=== PATIENT | male | born 1975 | race Caucasian/White ===

== ENCOUNTER 2018-05-03 17:56 | Inpatient (IN) | payer SELFPAY ==
[~2018-05-03] VITALS: Ht 170.2 cm; Wt 140.9 kg
[2018-05-03 18:25] LABS: APPEARANCE CLEAR ((CLEAR)); BILIRUBIN NEGATIVE; BLOOD NEGATIVE; COLOR YELLOW ((YELLOW)); GLUCOSE (STRIP) >=500; KETONES 80; LEUKOCYTES NEGATIVE; NITRITE NEGATIVE; PROTEIN (STRIP) 100; SPECIFIC GRAVITY 1.038 (1.000-1.030)
[2018-05-03 18:49] LABS: BACTERIA NONE SEEN /HPF; EPITHELIAL CELLS RARE /HPF; MUCUS 1+ /LPF; UCUL ADDED? NO; WHITE BLOOD CELLS 0-5 /HPF (0-5)
[2018-05-03 18:51] LABS: ALBUMIN 4.3 g/dL (3.2-4.8); CHLORIDE 97 mEq/L (99-109); SODIUM 127 mEq/L (136-147)
[2018-05-03 18:53] LABS: GLUCOSE 279 mg/dL (70-99)
[2018-05-03 18:54] LABS: TOTAL PROTEIN 11.2 g/dL (6.4-8.3)
[2018-05-03 18:55] LABS: TOTAL BILIRUBIN 3.3 mg/dL (0.0-1.0)
[2018-05-03 18:57] LABS: ALKALINE PHOSPHATASE 61 IU/L (3-129); CREATININE 0.9 mg/dL (0.6-1.3); GFR ESTIMATE (CALCULATED) > 59 mL/min/ (58.99-99999)
[2018-05-03 18:58] LABS: UREA NITROGEN (BUN) 8 mg/dL (9-23)
[2018-05-03 19:01] LABS: LIPASE 54 U/L (1.0-51.0)
[2018-05-03 19:02] LABS: POTASSIUM 6.2 mEq/L (3.7-5.4)
[2018-05-03 20:57] LABS: ALT (GPT) < 3 IU/L (3-49)
[2018-05-03 20:58] LABS: AST (GOT) 43 IU/L (2-34)
[2018-05-03 21:29] LABS: CARBOXY HGB 2.8 % (0-5); COMMENTS - BLOOD GASES C+; DEVICE RA; METHEMOGLOBIN 1.6 % (0-1.5); O2 SATURATION (CALCULATED) 97.9 % (95-99); PCO2 36 mm Hg (35-45); PO2 73 mm Hg (80-100); SITE LR
[2018-05-03 21:30] LABS: BICARBONATE 22.3 mEq/L (22-26)
[2018-05-03 21:35] LABS: CHLORIDE 94 MEQ/L (99-109); POTASSIUM 5.7 MEQ/L (3.7-5.4); SODIUM 125 MEQ/L (136-147)
[2018-05-03 22:01] LABS: CREATININE 0.7 MG/DL (0.6-1.3); GFR ESTIMATE (CALCULATED) > 59 mL/min/ (58.99-99999); GLUCOSE 178 mg/dL (70-99); UREA NITROGEN (BUN) 11 mg/dL (9-23)
[2018-05-03 22:01] LABS: HEMATOCRIT 38.8 % (38.0-50.0); HEMOGLOBIN 13.4 G/DL (12.5-16.6); MCH 30.2 PG (29.0-34.0); MCHC 34.5 G/DL (30.0-36.0); MCV 87.6 FL (86-99); PLATELET COUNT 272 K/uL (156-360); RBC DIS.WIDTH-CV 11.9 % (11.8-14.6); RBC DIS.WIDTH-SD 38.2 % (39-53); RED BLOOD COUNT 4.43 M/uL (4.00-5.50); WHITE BLOOD COUNT 12.7 K/uL (4.1-10.2)
[2018-05-03 22:16] LABS: CREATINE KINASE 137 IU/L (1-294)
[2018-05-03] MEDS ORDERED: ERGOCALCIF50000 UNIT PO (23:09)
[2018-05-03] MEDS ORDERED: TOPROL XL50 MG PO (23:09)
[2018-05-03] MEDS ORDERED: NORVASC10 MG PO (23:09)
[2018-05-03] MEDS ORDERED: LO-DOSE ASPIRIN81 M1 PO (23:10)
[2018-05-03] MEDS ORDERED: CLARITIN,ALAVAR10 MG PO (23:10)
[2018-05-03] MEDS ORDERED: FLONASE16 G1 BOTH NARES (23:11)
[2018-05-03] MEDS ORDERED: PREPARATION H C51 G1 PR (23:11)
[2018-05-03] MEDS ORDERED: [UNRECOGNIZED DRUG - OTHER] PO (23:14)
[2018-05-03] MEDS ORDERED: TOUJEO SOL300 UNIT/1 SC (23:16)
[2018-05-03 23:45] LABS: GLUCOSE 207 mg/dL (70-99)
[2018-05-03 23:49] LABS: CREATININE 0.5 mg/dL (0.6-1.3); GFR ESTIMATE (CALCULATED) > 59 mL/min/ (58.99-99999)
[2018-05-03 23:50] LABS: UREA NITROGEN (BUN) 5 mg/dL (9-23)
[2018-05-03 23:59] LABS: CHLORIDE 113 mEq/L (99-109); POTASSIUM 2.9 mEq/L (3.7-5.4); SODIUM 138 mEq/L (136-147)
[2018-05-04] VITALS (7 sets, daily range): BP systolic 119–144; BP diastolic 59–71
[2018-05-04 00:53] LABS: ALBUMIN 2.8 g/dL (3.2-4.8)
[2018-05-04 00:58] LABS: ALKALINE PHOSPHATASE 42 IU/L (3-129)
[2018-05-04 01:01] LABS: ALT (GPT) 17 IU/L (3-49); AST (GOT) 12 IU/L (2-34)
[2018-05-04 01:08] LABS: TOTAL PROTEIN 5.7 g/dL (6.4-8.3)
[2018-05-04 01:47] LABS: ALBUMIN 3.5 g/dL (3.2-4.8); CHLORIDE 104 mEq/L (99-109); SODIUM 133 mEq/L (136-147)
[2018-05-04 01:49] LABS: GLUCOSE 243 mg/dL (70-99)
[2018-05-04 01:53] LABS: ALBUMIN 3.6 g/dL (3.2-4.8); ALKALINE PHOSPHATASE 61 IU/L (3-129); CREATININE 0.8 mg/dL (0.6-1.3); GFR ESTIMATE (CALCULATED) > 59 mL/min/ (58.99-99999)
[2018-05-04 01:54] LABS: UREA NITROGEN (BUN) 6 mg/dL (9-23)
[2018-05-04 01:56] LABS: ALT (GPT) 30 IU/L (3-49)
[2018-05-04 01:59] LABS: ALKALINE PHOSPHATASE 64 IU/L (3-129)
[2018-05-04 02:02] LABS: ALT (GPT) 29 IU/L (3-49)
[2018-05-04 02:04] LABS: AST (GOT) 43 IU/L (2-34); AST (GOT) 51 IU/L (2-34); DIRECT BILIRUBIN 0.7 mg/dL (0.0-0.3); POTASSIUM 4.2 mEq/L (3.7-5.4); TOTAL BILIRUBIN 2.8 mg/dL (0.0-1.0); TOTAL PROTEIN 7.8 g/dL (6.4-8.3)
[2018-05-04] MEDS ORDERED: PANTOPRAZOLE SO20 MG PO (05:02)
[2018-05-04] MEDS ORDERED: PANTOPRAZOLE SO40 MG PO (05:03)
[2018-05-04 07:23] LABS: TRIGLYCERIDES 3361 MG/DL (Normal: <150)
[2018-05-04 07:56] LABS: ALBUMIN 3.7 G/DL (3.2-4.8); ALKALINE PHOSPHATASE 106 IU/L (3-129); CHLORIDE 98 MEQ/L (99-109); CREATININE 0.6 MG/DL (0.6-1.3); GFR ESTIMATE (CALCULATED) > 59 mL/min/ (58.99-99999); GLUCOSE 256 mg/dL (70-99); POTASSIUM 4.2 MEQ/L (3.7-5.4); SODIUM 131 MEQ/L (136-147); TOTAL BILIRUBIN 4.1 MG/DL (0.0-1.0); TOTAL PROTEIN 6.4 G/DL (6.4-8.3); UREA NITROGEN (BUN) 9 mg/dL (9-23)
[2018-05-04 07:57] LABS: ALT (GPT) 71 IU/L (3-49); AST (GOT) 132 IU/L (2-34)
[2018-05-04 12:48] LABS: HDL CHOLESTEROL 22 MG/DL (Desirable>=40); NON-HDL CHOLESTEROL 447 mg/dL (Desirable<160); TOTAL CHOLESTEROL 469 mg/dL (Desirable<200); TRIGLYCERIDES 2253 MG/DL (Normal: <150)
[2018-05-04 14:34] LABS: THYROTROPIN (TSH) 2.4 MIU/L (0.4-5.5)
[2018-05-05 03:54] VITALS: BP 129/68
[2018-05-05 06:55] VITALS: BP 122/60
[2018-05-05 07:09] LABS: BASOPHIL (%) 0.9 % (0-1); BASOPHIL COUNT 0.1 K/uL (0-0.1); EOSINOPHIL (%) 2.6 % (0-5); EOSINOPHIL COUNT 0.1 K/uL (0-0.3); HEMATOCRIT 39.2 % (38.0-50.0); HEMOGLOBIN 13.5 G/DL (12.5-16.6); IMMATURE GRANULOCYTE (%) 0.4 % (0.0-0.7); LYMPHOCYTE (%) 30.2 % (15-42); LYMPHOCYTE COUNT 1.6 K/uL (1.0-2.8); MCH 30.8 PG (29.0-34.0); MCHC 34.4 G/DL (30.0-36.0); MCV 89.5 FL (86-99); MONOCYTE (%) 8.8 % (3-12); MONOCYTE COUNT 0.5 K/uL (0-0.8); NEUTROPHIL (%) 57.1 % (45-76); NEUTROPHIL COUNT 3.1 K/uL (1.8-6.4); PLATELET COUNT 238 K/uL (156-360); RBC DIS.WIDTH-CV 12.1 % (11.8-14.6); RBC DIS.WIDTH-SD 39.8 % (39-53); RED BLOOD COUNT 4.38 M/uL (4.00-5.50); WHITE BLOOD COUNT 5.4 K/uL (4.1-10.2)
[2018-05-05 07:47] LABS: CHLORIDE 100 MEQ/L (99-109); CREATININE 0.5 MG/DL (0.6-1.3); GFR ESTIMATE (CALCULATED) > 59 mL/min/ (58.99-99999); GLUCOSE 219 mg/dL (70-99); POTASSIUM 4.1 MEQ/L (3.7-5.4); SODIUM 134 MEQ/L (136-147); TRIGLYCERIDES 1236 MG/DL (Normal: <150); UREA NITROGEN (BUN) 7 mg/dL (9-23)
[2018-05-05 08:35] LABS: ALBUMIN 3.3 G/DL (3.2-4.8); ALKALINE PHOSPHATASE 128 IU/L (3-129); AST (GOT) 160 IU/L (2-34); TOTAL PROTEIN 5.8 G/DL (6.4-8.3)
[2018-05-05 08:39] LABS: ALT (GPT) 165 IU/L (3-49); TOTAL BILIRUBIN 2.7 MG/DL (0.0-1.0)
[2018-05-05 10:08] LABS: HEMOGLOBIN A1c (GLYCOHEMOGLOB) 11.2 % (Below 5.7)
[2018-05-05 16:34] VITALS: BP 115/69
[2018-05-05 20:15] VITALS: BP 140/79
[2018-05-06 00:23] VITALS: BP 132/81
[2018-05-06 04:18] VITALS: BP 129/72
[2018-05-06 07:00] LABS: ALBUMIN 3.6 G/DL (3.2-4.8); ALKALINE PHOSPHATASE 143 IU/L (3-129); ALT (GPT) 150 IU/L (3-49); CHLORIDE 98 MEQ/L (99-109); CREATININE 0.5 MG/DL (0.6-1.3); GFR ESTIMATE (CALCULATED) > 59 mL/min/ (58.99-99999); GLUCOSE 225 mg/dL (70-99); POTASSIUM 3.8 MEQ/L (3.7-5.4); SODIUM 133 MEQ/L (136-147); TOTAL PROTEIN 6.2 G/DL (6.4-8.3); UREA NITROGEN (BUN) 6 mg/dL (9-23)
[2018-05-06 07:01] LABS: AST (GOT) 75 IU/L (2-34); TOTAL BILIRUBIN 1.7 MG/DL (0.0-1.0)
[2018-05-06 07:11] LABS: TRIGLYCERIDES 1193 MG/DL (Normal: <150)
[2018-05-06 07:45] VITALS: BP 122/58
[2018-05-06 11:47] VITALS: BP 116/68
[2018-05-06 16:12] VITALS: BP 116/61
[2018-05-06 20:18] VITALS: BP 132/81
[2018-05-07 00:19] VITALS: BP 124/64
[2018-05-07 04:21] VITALS: BP 120/64
[2018-05-07 06:50] LABS: ALBUMIN 3.4 G/DL (3.2-4.8); ALKALINE PHOSPHATASE 111 IU/L (3-129); ALT (GPT) 110 IU/L (3-49); AST (GOT) 43 IU/L (2-34); CHLORIDE 98 MEQ/L (99-109); CREATININE 0.6 MG/DL (0.6-1.3); GFR ESTIMATE (CALCULATED) > 59 mL/min/ (58.99-99999); GLUCOSE 246 mg/dL (70-99); POTASSIUM 4.2 MEQ/L (3.7-5.4); SODIUM 135 MEQ/L (136-147); TRIGLYCERIDES 891 MG/DL (Normal: <150); UREA NITROGEN (BUN) 11 mg/dL (9-23)
[2018-05-07 08:16] VITALS: BP 126/82
[2018-05-07] MEDS ORDERED: PRAVASTATIN SOD40 MG PO ×2 (11:05→14:30)
[2018-05-07] MEDS ORDERED: NOVOLIN N100 UNITS/ SC (11:05)
[2018-05-07] MEDS ORDERED: FENOFIBRATE120 MG PO (11:05)
[2018-05-07] MEDS ORDERED: OXYCODONE HCL5 MG PO (11:05)
[2018-05-07 11:10] VITALS: BP 124/66
[2018-05-07 11:15] VITALS: BP 114/58
[2018-05-07] MEDS ORDERED: NOVOLIN,HU100 UNITS/ SC (14:30)
[2018-05-07] MEDS ORDERED: FENOFIBRATE54 M1 PO (14:30)
[2018-05-07 16:49] VITALS: BP 141/76
== END 2018-05-07 18:18 | disposition home or self-care (01) | DRG 439 ==
LOC: EME 17:56 → ENRESERV 23:59 → EDOF 23:59 → ENRESERV 05-04 00:18 → 3EAST 05-04 01:13
PROVIDERS: Hospitalist; Internal Medicine; Physician Assistant
PROC: 5A09357 Assistance with Respiratory Ventilation, Less than 24 Consecutive Hours, Continuous Positive Airway Pressure (ICD-10-PCS; principal; 2018-05-04)
DX: K85.90 Acute pancreatitis without necrosis or infection, unspecified (principal); K86.1 Other chronic pancreatitis; K86.81 Exocrine pancreatic insufficiency; E11.65 Type 2 diabetes mellitus with hyperglycemia; E87.2 Acidosis; E87.5 Hyperkalemia; E66.01 Morbid (severe) obesity due to excess calories; Z68.42 Body mass index [BMI] 45.0-49.9, adult; E83.51 Hypocalcemia; E87.1 Hypo-osmolality and hyponatremia; E86.0 Dehydration; G47.33 Obstructive sleep apnea (adult) (pediatric); Z99.81 Dependence on supplemental oxygen; I10 Essential (primary) hypertension; E78.1 Pure hyperglyceridemia; K42.9 Umbilical hernia without obstruction or gangrene; R74.0 Nonspecific elevation of levels of transaminase and lactic acid dehydrogenase [LDH]; E78.5 Hyperlipidemia, unspecified; Z91.14 Patient's other noncompliance with medication regimen; Z90.49 Acquired absence of other specified parts of digestive tract; Z86.73 Personal history of transient ischemic attack (TIA), and cerebral infarction without residual deficits; Z83.3 Family history of diabetes mellitus; Z80.51 Family history of malignant neoplasm of kidney
CPT/HCPCS: 36600; 74177; 80048; 80048 91; 80053; 80061; 80076; 81003; 82010; 82550; 82803; 82948; 83036; 83605; 83690; 84443; 84478; 85025; 85027; 87040; 99281; 99285; J1170; J1644; J1815; J2270; J2405; J3010; J7030; J7120; S0028